=== PATIENT | male | born 1945 | race Caucasian/White ===

== ENCOUNTER 2017-11-11 08:28 | Outpatient (CLI) | payer OTHER ==
--- NOTE | 2017-11-11 11:02 | CT ---
CT OF THE ABDOMEN AND PELVIS WITHOUT IV CONTRAST ORAL CONTRAST WAS ADMINISTERED: INDICATION: Weight loss of 15 lbs over the last 5 months with a history of colon resection for colon cancer, appe ndectomy, cholecystectomy, and left partial nephrectomy. TECHNIQUE: Multiple CT images were obtained of the abdomen and pelvis with oral contrast only. No IV contrast w as administered due to the insurance company only authorizing an oral contrast study. COMPARISON: CTA of the thorax dated 01/27/[address] of the abdomen and pelvis performed without contrast on . FINDINGS: There is stable scarring within the right lung base. No new pulmonary nodule is evident within the l ower lung bases. The lack of IV contrast limits evaluation for metastatic disease or primary malignancy of the abdomen and pelvis or the solid organs. The unopacified liver appears within normal limits. The unopacified spleen, pancreas, and adrenal gl ands appear within normal limits. There are surgical clips seen adjacent to the superior pole of the right kidney which are stable to t he prior exam and likely reflecting the sequelae of prior partial nephrectomy. There are nonobstruct ing renal calculi bilaterally. One of the largest within the right kidney is seen within the superio r pole measuring 2 mm. There is a 3 mm stone within the inferior pole of the left kidney. An additi onal 1-2 mm stone is seen within the inferior pole left kidney. No hydronephrosis is evident. No de finite ureteral calculus is identified. There are mild calcifications involving the abdominal aorta. There is a circumaortic left renal vein . There are calcifications involving the vas deferens which can be seen in diabetic males. This is sta ble to the prior exam. The prostate measures 4.9 cm. There is poor distention of the colon with numerous scattered divertic danielle. No definite pericolonic inflammatory stranding is present. There is a focal area of wall thick ening involving the descending colon on image 46 of the coronal series which may be related to a foca l area of peristalsis; however, a malignancy cannot be entirely excluded. There is postsurgical junior ge of a partial colectomy involving the transverse colon and right hemicolon. The small bowel is of normal caliber. No drainable fluid collection is evident. No definite enlarged lymph nodes are evident. There is a left total hip prosthesis which slightly limits image detail of the lower pelvis. There i s scattered degenerative and osteoarthritic change. No suspicious osteolytic or osteoblastic lesion is identified. IMPRESSION: 1. There is circumferential wall thickening involving a portion of the descending colon that may be related to a foal region of peristalsis; however, a wall lesion related to malignancy in the descendi ng colon cannot be excluded. Recommend further evaluation with colonoscopy. 2. The lack of IV contrast limits evaluation for solid organ malignancy and metastatic disease. Wou ld recommend consideration for repeat evaluation with utilization of IV contrast. 3. Bilateral nephrolithiasis. 4. Prostate enlargement. 5. Calcifications of the vas deferens can be seen in diabetic males. 6. Stable scarring in the right lung base. 7. Postsurgical change of a partial colectomy. CODE T POS: [facility]
== END 2017-11-11 08:29 | disposition home or self-care (01) ==
LOC: SCSCT 08:28
PROVIDERS: ATTEND Internal Medicine Gastroenterology
DX: R63.4 Abnormal weight loss (principal); N20.0 Calculus of kidney; N40.0 Benign prostatic hyperplasia without lower urinary tract symptoms; J98.4 Other disorders of lung; N50.89 Other specified disorders of the male genital organs; Z90.49 Acquired absence of other specified parts of digestive tract
CPT/HCPCS: 74176

== ENCOUNTER 2018-07-04 08:55 | Outpatient (CLI) | payer OTHER ==
--- NOTE | 2018-07-04 11:16 | BD ---
DEXA BONE DENSITOMETRY: (Dual energy X-ray Absorptiometry) DATE: 07/04/18 HISTORY: 73-year-old white male at increased risk for osteoporotic fracture due to rheumatoid arthritis, previ ous fracture, and inflammatory bowel disease. Height: 69 Weight: 180 lbs COMPARISON: None available. FINDINGS: Bone mineral density (BMD) is given in grams per square centimeter (g/cm2): LUMBAR SPINE: BMD(g/cm2) T-score Z-score L1: 0.950 -1.1 -0.2 L2: 1.088 -0.1 0.9 L3: 1.029 -0.7 0.3 L4: 1.063 -0.2 0.8 Total: 1.031 -0.5 0.4 HIP: Femoral neck: 0.628 -2.2 -1.0 Total: 0.728 -2.0 -1.3 FRAX WHO Fracture Risk Assessment Tool: 10 Year Fracture Risk * Major osteoporotic fracture: 18% Hip fracture: 6.0% Reported Risk Factors: [place](), Neck BMD=0.628, BMI=26.6, previous fracture and rheumatoid arthritis. * Fracture probability is calculated for an untreated patient. Fracture probability may be lower if the patient has received treatment. IMPRESSION: 1. The mean bone mineral density of the lumbar spine is normal. Fracture risk is not increased. 2. The bone mineral density of the femoral neck is osteopenic. Fracture risk is increased. JENNIFER Pham POS: [facility]
== END 2018-07-04 08:56 | disposition home or self-care (01) ==
LOC: BICMAMMO 08:55
PROVIDERS: ATTEND Internal Medicine Gastroenterology
DX: Z13.820 Encounter for screening for osteoporosis (principal); K50.00 Crohn's disease of small intestine without complications; Z15.09 Genetic susceptibility to other malignant neoplasm; K21.9 Gastro-esophageal reflux disease without esophagitis; M85.88 Other specified disorders of bone density and structure, other site; Z85.038 Personal history of other malignant neoplasm of large intestine
CPT/HCPCS: 77080

== ENCOUNTER 2019-07-20 08:04 | Outpatient (CLI) | payer MEDICARE, OTHER ==
--- NOTE | 2019-07-20 11:35 | MRI ---
EXAM: MRI of the abdomen without and with contrast COMPARISON: None HISTORY: Serna syndrome. Family history of cholangiocarcinoma. Personal history of colon cancer. Croh n's disease. TECHNIQUE: Multiplanar multi sequence MR images were taken of the abdomen without and with IV contras t. An MRCP was performed. FINDINGS: Liver: No focal liver lesions or intrahepatic ductal dilatation. Normal signal without dropout on out of phase images. No abnormal enhancement. Gallbladder: Absent Common bile duct: Normal caliber without filling defects Adrenal glands: Unremarkable. Kidneys: No hydronephrosis or focal renal lesions. There is focal enlargement of one posterior calyx with overlying cortical retraction which likely represents scarring. No abnormal areas of enhancement. Spleen: Unremarkable. Pancreas: Unremarkable. No abnormal enhancement. Retroperitoneum: No enlarged lymph nodes Bones: No marrow signal abnormality. IMPRESSION: No evidence of suspicious hepatic abnormality.
== END 2019-07-20 08:05 | disposition home or self-care (01) ==
LOC: MRI 08:04 → SCSMRI 08:05
PROVIDERS: ATTEND Internal Medicine Gastroenterology
DX: Z15.09 Genetic susceptibility to other malignant neoplasm (principal)
CPT/HCPCS: 74183; 82565